=== PATIENT | female | born 1970 | race Caucasian/White ===

== ENCOUNTER 2022-04-21 15:58 | Emergency (ER) | payer MEDICAID, SELFPAY ==
--- NOTE | ~2022-04-21 | XR_ITS ---
XR toe 5th RT min 2V 04/21/2022 16:49 Indication: Right fifth toe pain after trauma Procedure: 3 views right fifth toe Comparison: No prior studies for comparison. Findings: There is a mildly displaced transverse extra-articular fracture of the fifth proximal phala nx with lateral displacement. Impression: 1: Mildly displaced extra-articular fracture right fifth proximal phalanx. Reviewed, dictated and finalized at location A. Impression: 1: Mildly displaced extra-articular fracture right fifth proximal phalanx.
[2022-04-21 16:18] VITALS: BP 142/92; PULSE 111; RESP 20; TEMP 36.8; O2SAT 98
[2022-04-21 16:39] VITALS: BP 142/92; PULSE 111; RESP 20; TEMP 36.8; O2SAT 98
--- NOTE | 2022-04-21 16:40 | ED.LOWEXIN ---
HPI - Extremity Injury (Lower) General Chief Complaint: Extremity Injury, Lower Stated Complaint: Right Toe Injury Time Seen by Provider: 04/21/22 16:40 Source: patient Mode of arrival: ambulatory Limitations: no limitations History of Present Illness HPI Narrative: 51 y/o female presented for c/o right little toe pain after injury today. Struck the toe on the corner of the wall. Endorses bruising and swelling. Denies numbness tingling or weakness. Not taking anything for pain, rates 5/10. Related Data Home Medications Medication Instructions Recorded Confirmed escitalopram oxalate 10 mg tablet 10 mg PO DAILY 04/21/22 04/21/22 (Lexapro) hydrochlorothiazide 12.5 mg capsule 12.5 mg PO DAILY 04/21/22 04/21/22 metformin 500 mg tablet 500 mg PO BID 04/21/22 04/21/22 Allergies Allergy/AdvReac Type Severity Reaction Status Date / Time mercury (elemental) Allergy Unknown Verified 04/21/22 16:39 nickel Allergy Unknown Uncoded 04/21/22 16:38 pet dander Allergy Unknown Uncoded 04/21/22 16:38 Review of Systems Review of Systems: CONSTITUTIONAL: Denies body aches, fever, chills EYES: Denies visual changes CARDIOVASCULAR: Denies chest pain, palpitations, or edema. RESPIRATORY: Denies cough or dyspnea. SKIN: reports bruising MUSCULOSKELETAL: reports toe pain NEUROLOGIC: Denies headache, numbness, tingling, or weakness. All systems reviewed & are unremarkable except as noted in HPI and below PMFSH Comments At time of signature, I have reviewed and agree with nursing past medical, surgical, social and family history unless otherwise noted. Please see nursing chart for further information. There is no relevant family history pertinent to the presenting complaint Exam Narrative: GENERAL: Well-appearing CHEST: Speaks in full sentences. No respiratory distress. HEART: Regular rate and rhythm. Normal and equal peripheral pulses. EXTREMITIES: Right 5th toe with small amount of bruising at MTP and tenderness; Right foot has normal strength and sensation, normal range of motion, but endorses pain with movement of 5th toe. Mild lateral displacement. No open wounds; pulse palpable and equal bilaterally, skin warm, dry, pink. Capillary refill less than 3 seconds. SKIN: Warm, dry, no rash. NEURO: Alert and oriented x3. Course Course Emergency Course: Patient is aware of diagnosis, understands and agrees to treatment plan. Anticipatory guidance given. Patient agrees to follow-up as directed and is aware of reasons to seek care at the emergency department. Portions of this record may have been created with voice recognition software Level of Care: Express Care Visit Vital Signs Vital signs: Vital Signs Temperature 98.3 F 04/21/22 16:18 Pulse Rate 111 H 04/21/22 16:18 Respiratory Rate 04/21/22 16:18 Blood Pressure 142/92 H 04/21/22 16:18 Pulse Oximetry 98 04/21/22 16:18 Oxygen Delivery Room Air 04/21/22 16:18 Temperature 98.3 F 04/21/22 16:39 Pulse Rate 111 H 04/21/22 16:39 Respiratory Rate 04/21/22 16:39 Blood Pressure 142/92 H 04/21/22 16:39 Pulse Oximetry 98 04/21/22 16:39 Oxygen Delivery Room Air 04/21/22 16:39 Reviewed Procedures Orthopedic Splinting/Casting Right 5th toe: Lower Extremity Immobilizer: post-op shoe and meri tape MDM - Extremity Injury (Lower) MDM Narrative Medical decision making narrative: Result of x-ray reviewed with patient. Meri tape and postop shoe applied. Advised supportive measures and signs/symptoms to go to the ER. Pt is appropriate for outpt treatment and f/u.She is from [place]. Advised to f/u with referral while in [facility],call tomorrow. Differential Diagnosis Differential diagnosis: Likely fracture of toe and other (toe sprain, contusion) Imaging Data Radiologist's impression: Patient: ShankarOctober R : 1970 MR#: [id number] Age/Sex: 51 / F Acct:[id number] Loc: [facility]? ? ADM Date: 04/21/22Attendi
== END 2022-04-21 17:15 | disposition home or self-care (01) ==
PROVIDERS: Emergency Provider Nurse Practitioner Family
DX: S92.514A Nondisplaced fracture of proximal phalanx of right lesser toe(s), initial encounter for closed fracture (principal); W22.09XA Striking against other stationary object, initial encounter
CPT/HCPCS: 73660; 99214; G0463